=== PATIENT | female | born 1995 | race Caucasian/White ===

== ENCOUNTER 2019-01-13 03:13 | Emergency (ER) | payer OTHER ==
[~2019-01-13] VITALS: Ht 160 cm; Wt 57.6 kg
[2019-01-13] MEDS ORDERED: CELEXA 10 MG TA10 M1 PO (03:30)
[2019-01-13] MEDS ORDERED: PROTONIX 20 MG20 M1 PO (03:30)
[2019-01-13 04:50] VITALS: BP 110/70
== END 2019-01-13 04:47 | disposition home or self-care (01) ==
LOC: ER 03:13
DX: S09.8XXA Other specified injuries of head, initial encounter (principal); F17.210 Nicotine dependence, cigarettes, uncomplicated; Z88.0 Allergy status to penicillin; Z88.1 Allergy status to other antibiotic agents; Z88.2 Allergy status to sulfonamides; W17.89XA Other fall from one level to another, initial encounter; Y93.89 Activity, other specified; Y92.89 Other specified places as the place of occurrence of the external cause; Y99.8 Other external cause status